=== PATIENT | male | born 1990 | race African-American/Black ===

== ENCOUNTER 2024-10-07 05:36 | Emergency (ER) | payer OTHER ==
[~2024-10-07] VITALS: Ht 180.3 cm; Wt 90.0 kg
[2024-10-07 05:40] VITALS: TEMP 98
[2024-10-07] MEDS: ACETAMINOPHEN 500 MG TABLET PO ONE (06:56)
[2024-10-07 07:05] LABS: EOSINOPHILS % (AUTO) 5.3 % (1.0-6.0); HEMATOCRIT 46.9 % (41-53); HEMOGLOBIN 15.3 g/dL (13.5-17.5); LYMPHOCYTES # (AUTO) 2.2 K/uL (1.0-4.8); LYMPHOCYTES % (AUTO) 35.3 % (22.0-44.0); MEAN CORPUSCULAR HEMOGLOBIN 26.2 pg (26.0-34.0); MEAN CORPUSCULAR HGB CONC 32.7 G/dL (31.0-37.0); MEAN CORPUSCULAR VOLUME 80 fL (80-100); MONOCYTES # (AUTO) 0.6 K/uL (0.1-1.0); MONOCYTES % (AUTO) 10.3 % (2.0-9.0); NEUTROPHILS % (AUTO) 48.1 % (40.0-70.0); PLATELET COUNT (AUTO) 259 K/uL (150-450); RED BLOOD CELL COUNT(AUTO) 5.86 MIL/uL (4.50-5.90); WHITE BLOOD COUNT (AUTO) 6.2 K/uL (4.5-11.0)
[2024-10-07 07:15] LABS: ANION GAP 7 mmol/L (8-16); CALCIUM, TOTAL 8.4 mg/dL (8.8-10.5); CARBON DIOXIDE 26 mmol/L (22-29); CHLORIDE 105 mmol/L (98-107); CREATININE 0.69 mg/dL (0.60-1.30); GLOMERULAR FILTR. RATE CALC > 60 mL/min (>60); GLUCOSE,RANDOM 94 mg/dL (70-110); POTASSIUM 3.8 mmol/L (3.5-5.1); SODIUM SERUM 138 mmol/L (136-145); UREA NITROGEN, BLOOD 15 mg/dL (7-18)
[2024-10-07 07:18] LABS: COVID AG,FIA SOURCE NASAL SWAB
[2024-10-07 07:46] LABS: SARS-COV2 (COVID) ANTIGEN,FIA Negative (Negative)
[2024-10-07 11:30] VITALS: BP 125/78; PULSE 77; RESP 15; O2SAT 99
== END 2024-10-07 13:23 | disposition home or self-care (01) ==
LOC: EMS 05:46
DX: J02.9 Acute pharyngitis, unspecified (principal); R45.851 Suicidal ideations; Z59.819 Housing instability, housed unspecified; Z20.822 Contact with and (suspected) exposure to COVID-19
CPT/HCPCS: 99283; 87426; 80048; 85025; 36415; G0480

== ENCOUNTER 2025-04-08 19:24 | Emergency (ER) | payer OTHER ==
[~2025-04-08] VITALS: Ht 185.4 cm; Wt 96.3 kg
[2025-04-08 19:58] VITALS: BP 136/69; PULSE 106; RESP 18; TEMP 97.5; O2SAT 100
[2025-04-08] MEDS: ACETAMINOPHEN 500 MG TABLET PO ONE (20:28)
[2025-04-08 20:40] LABS: PLATELET COUNT (AUTO) 294 K/uL (150-450); RED BLOOD CELL COUNT(AUTO) 5.30 MIL/uL (4.50-5.90); RED CELL DISTRIBUTION WIDTH 15.5 % (11.5-14.5); WHITE BLOOD COUNT (AUTO) 7.8 K/uL (4.5-11.0)
[2025-04-08 20:55] LABS: CALCIUM, TOTAL 9.1 mg/dL (8.8-10.5); CREATININE 0.67 mg/dL (0.60-1.30); GLOMERULAR FILTR. RATE CALC > 60 mL/min (>60); GLUCOSE,RANDOM 99 mg/dL (70-110); SODIUM SERUM 139 mmol/L (136-145); UREA NITROGEN, BLOOD 16 mg/dL (7-18)
[2025-04-09] MEDS ORDERED: IBUP-1492 PO (00:26)
== END 2025-04-08 23:00 | disposition home or self-care (01) ==
LOC: EMS 19:35
DX: F15.10 Other stimulant abuse, uncomplicated (principal); R44.0 Auditory hallucinations; R45.851 Suicidal ideations
CPT/HCPCS: 99284; 80048; 85025; 36415; 73562; G0480